=== PATIENT | female | born 1950 | race Caucasian/White ===

== ENCOUNTER → 2021-05-05 | Outpatient (CLI) | payer MEDICARE, OTHER | LOC: MRI 13:33 | DX: F01.50 Vascular dementia, unspecified severity, without behavioral disturbance, psychotic disturbance, mood disturbance, and anxiety (principal); R26.0 Ataxic gait; G31.9 Degenerative disease of nervous system, unspecified; I65.23 Occlusion and stenosis of bilateral carotid arteries | CPT/HCPCS: 70551; 93880 ==

== ENCOUNTER 2021-06-04 12:15 | Emergency (ER) | payer MEDICARE, OTHER ==
[2021-06-04 13:57] LABS: HEMOGLOBIN 15.1 gm/dl (12.3-15.3); RED BLOOD COUNT 4.98 M/UL (4.00-5.10)
[2021-06-04 14:36] LABS: BUN/CREATININE RATIO 18 (0-10)
== END 2021-06-04 19:12 | disposition left against medical advice (07) ==
LOC: ER1 12:15
PROVIDERS: Physician Assistant
DX: G93.49 Other encephalopathy (principal); I48.91 Unspecified atrial fibrillation; Z20.822 Contact with and (suspected) exposure to COVID-19; I10 Essential (primary) hypertension
CPT/HCPCS: 70450; 71045; 72170; 80053; 81001; 82550; 82553; 83874; 84484; 85025; 87086; 93005; 99285; U0002